=== PATIENT | female | born 1980 | race Caucasian/White ===

== ENCOUNTER 2020-01-30 18:20 | Emergency (ER) | payer OTHER, MEDICARE, MEDICAID, SELFPAY ==
[2020-01-30 18:31] VITALS: BP 142/90; PULSE 82; RESP 16; TEMP 36.5; O2SAT 97; BMI 28.7
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
[2020-01-30 20:00] VITALS: BP 123/73; PULSE 94; RESP 16; O2SAT 97
[2020-01-30] MEDS: Ibuprofen 600 MG TABLET PO (20:58)
== END 2020-01-30 21:29 | disposition left against medical advice (07) ==
PROVIDERS: Emergency Provider Emergency Medicine; PCP Family Medicine
DX: S13.4XXA Sprain of ligaments of cervical spine, initial encounter (principal); V43.62XA Car passenger injured in collision with other type car in traffic accident, initial encounter; Y93.89 Activity, other specified; Y92.414 Local residential or business street as the place of occurrence of the external cause; Y99.9 Unspecified external cause status
CPT/HCPCS: 72125; 99283; 99284